=== PATIENT | female | born 1950 | race Caucasian/White ===

== ENCOUNTER → 2018-06-01 09:22 | Outpatient (CLI) | payer MEDICARE, OTHER, SELFPAY ==
--- NOTE | 2018-06-01 | DI.US.S_ITS ---
PROCEDURE: US THYROID INDICATIONS: Routine screening mammogram and hypothyroidism TECHNIQUE: Real-time scanning was performed of the thyroid gland, with image documentation. COMPARISON: [facility], US, THYROID, 05/28/2017, 11:06. [facility], US, THYROID, 11/01/2012, 14:38. [facility], US, THYROID, 08/01/2011, 14:45. FINDINGS: Right: No thyroid tissue or mass lesion found. No adjacent adenopathy seen. Prior right thyroidectomy. Left: Prior left thyroidectomy, no residual thyroid tissue seen. No mass lesion found in the operative bed. No adjacent adenopathy. Isthmus: No thyroid tissue seen. Lymph nodes: No regional lymphadenopathy. IMPRESSION: Prior bilateral thyroidectomy, no residual thyroid tissue found, no adenopathy, no mass lesion identified in the bilateral thyroid resection bed. Dictated by: Brandon Figueroa M.D. on 06/03/2018 at 9:18 Approved by: Brandon Figueroa M.D. on 06/03/2018 at 9:20
--- NOTE | 2018-06-01 | DI.RAD.S_ITS ---
PROCEDURE: XR CHEST 2V INDICATIONS: History of thyroid cancer TECHNIQUE: 2 views of the chest were acquired. COMPARISON: [facility], , CHEST 2 VIEW, 05/28/2017, 10:50. FINDINGS: Surgical changes and devices: Surgical clips in the lower neck/thoracic inlet, presumably related to thyroidectomy. Lungs and pleura: No pleural effusions or pneumothorax. Lungs are clear. Mediastinum: Mediastinal contours are normal. Heart size is normal. Bones and chest wall: No suspicious bony abnormalities. Soft tissues appear unremarkable. IMPRESSION: No acute cardiopulmonary disease. Dictated by: Radha Deleon M.D. on 06/01/2018 at 15:41 Approved by: Radha Deleon M.D. on 06/01/2018 at 15:42
--- NOTE | 2018-06-01 | DI.MG.S_ITS ---
BILATERAL DIGITAL SCREENING MAMMOGRAM 3D/2D WITH CAD: 06/01/2018 CLINICAL: Routine screening. Family history of breast cancer. Comparison is made to exams dated: 05/28/2017 mammogram, 03/27/2016 mammogram, and 02/27/2015 mammogram - [facility]. The tissue of both breasts is heterogeneously dense. This may lower the sensitivity of mammography. Current study was also evaluated with a Computer Aided Detection (CAD) system. No significant masses, calcifications, or other findings are seen in either breast. There has been no significant interval change. IMPRESSION: NEGATIVE There is no mammographic evidence of malignancy. A 1 year screening mammogram is recommended. This exam was interpreted at Station ID: [id number]. NOTE: For mammograms, a report in lay terms will be sent to the patient. Approximately 15% of breast malignancies will not be visualized mammographically. In the management of a palpable breast mass, a negative mammogram must not discourage biopsy of a clinically suspicious lesion. Electronically Signed By: Sharath vasquez/ry:06/01/2018 23:35:26 letter sent: Normal Exam ACR BI-RADS Category 1: Negative 3341F
== END ==
PROVIDERS: Family Provider Family Medicine; PCP Family Medicine; Visit Provider Family Medicine
DX: Z12.31 Encounter for screening mammogram for malignant neoplasm of breast (principal); E03.9 Hypothyroidism, unspecified; M85.852 Other specified disorders of bone density and structure, left thigh; Z78.0 Asymptomatic menopausal state; Z80.3 Family history of malignant neoplasm of breast; Z85.850 Personal history of malignant neoplasm of thyroid; Z90.722 Acquired absence of ovaries, bilateral
CPT/HCPCS: 71046; 76536; 77063; 77067; 77080

== ENCOUNTER → 2019-06-02 08:47 | Outpatient (CLI) | payer MEDICARE, OTHER, SELFPAY ==
--- NOTE | 2019-06-02 | DI.RAD.S_ITS ---
PROCEDURE: XR CHEST 2V INDICATIONS: Personal history of malignant neoplasm of thyroid, TECHNIQUE: 2 views of the chest were acquired. COMPARISON: [facility], CR, XR CHEST 2V, 06/01/2018, 9:40. FINDINGS: Surgical changes and devices: Surgical clips in the thyroid bed Lungs and pleura: Lungs are clear. No pleural effusions or pneumothorax. Mediastinum: Mediastinal contours are normal. Heart size is normal. Bones and chest wall: No suspicious bony abnormalities. Soft tissues appear unremarkable. IMPRESSION: No evidence acute pulmonary process. Dictated by: Nadir Lynn M.D. on 06/02/2019 at 9:24 Approved by: Nadir Lynn M.D. on 06/02/2019 at 9:25
--- NOTE | 2019-06-02 | DI.US.S_ITS ---
PROCEDURE: US THYROID INDICATIONS: PERSONAL HX OF MALIGNANT NEOPLASM OF THYROID TECHNIQUE: Real-time scanning was performed of the thyroid gland, with image documentation. COMPARISON: [facility], US, US THYROID, 06/01/2018, 10:05. FINDINGS: Normal appearance of the thyroid bed bilaterally status post thyroidectomy. No masses or fluid collections. No thyroid tissue seen. IMPRESSION: Stable appearance of the thyroid bed post thyroidectomy without evidence for tumor recurrence or lymphadenopathy. Dictated by: Rojelio SAMS Interpreted: Allyssa Curry MD on 06/02/2019 at 14:34 Approved by: Brandon Figueroa M.D. on 06/07/2019 at 10:00
--- NOTE | 2019-06-02 | DI.MG.S_ITS ---
BILATERAL DIGITAL SCREENING MAMMOGRAM 3D/2D WITH CAD: 06/02/2019 CLINICAL: Routine screening. Family history of breast cancer. Comparison is made to exams dated: 06/01/2018 mammogram, 05/28/2017 mammogram, and 03/27/2016 mammogram - [facility]. The tissue of both breasts is heterogeneously dense. This may lower the sensitivity of mammography. Current study was also evaluated with a Computer Aided Detection (CAD) system. No significant masses, calcifications, or other findings are seen in either breast. There has been no significant interval change. IMPRESSION: NEGATIVE There is no mammographic evidence of malignancy. A 1 year screening mammogram is recommended. This exam was interpreted at Station ID: [id number]. NOTE: For mammograms, a report in lay terms will be sent to the patient. Approximately 15% of breast malignancies will not be visualized mammographically. In the management of a palpable breast mass, a negative mammogram must not discourage biopsy of a clinically suspicious lesion. Electronically Signed By: Stephon wilson/ry:06/02/2019 12:12:19 letter sent: Normal Exam ACR BI-RADS Category 1: Negative 3341F
== END ==
PROVIDERS: Family Provider Family Medicine; PCP Family Medicine; Visit Provider Family Medicine
DX: Z12.31 Encounter for screening mammogram for malignant neoplasm of breast (principal); Z80.3 Family history of malignant neoplasm of breast; Z85.850 Personal history of malignant neoplasm of thyroid
CPT/HCPCS: 71046; 76536; 77063; 77067

== ENCOUNTER → 2020-04-21 13:24 | Outpatient (CLI) | payer MEDICARE, OTHER, SELFPAY ==
[2020-04-23 20:27] LABS: COVID19 Sendout Not Detected (Not Detect)
== END ==
PROVIDERS: PCP Family Medicine; Visit Provider Physician Assistant
DX: Z11.59 Encounter for screening for other viral diseases (principal)
CPT/HCPCS: 87635

== ENCOUNTER 2020-04-24 06:32 | Day surgery (SDC) | payer MEDICARE, OTHER, SELFPAY ==
[2020-04-24] MEDS: PROPARACAINE 0.5% OPHTH SOL 2 DROPS EYE-OP (07:15)
[2020-04-24] MEDS: CATARACT EYE COMPOUND (10 DROPS/SYRINGE) 3 DROPS EYE-OP (07:15)
[2020-04-24 07:16] VITALS: BP 158/86; PULSE 62; RESP 16; TEMP 36.5; O2SAT 99; BMI 25.7
[2020-04-24] MEDS: LIDOCAINE JELLY 2% 5 ML 1 APPLIC TOP (07:57)
[2020-04-24] MEDS: TRIAMCINOLONE 50 MG/5 ML VIAL INJ (07:57)
[2020-04-24] MEDS: CHONDROIDTIN/SOD HYALURONATE 1.05 ML SYRINGE INTRAOCULA (07:57)
[2020-04-24] MEDS: BALANCED SALT IRRIG SOLN NO.2 500 ML, EPINEPHrine 1 MG IRR (07:58)
[2020-04-24] MEDS: TETRACAINE 0.5% OPHTH DROPS 4 ML 2 DROPS EYE-OP (07:59)
[2020-04-24] MEDS: MOXIFLOXACIN INJ 5 MG/ML VIAL EYE-OP (08:00)
[2020-04-24] MEDS: PHENYLEPHRINE/LIDOCAINE VIAL (OR) 0.2 ML EYE-OP (08:00)
--- NOTE | 2020-04-24 08:05 | PM.PREOP ---
Pre-operative Note Interval Note History & Physical reviewed/Exam performed by Physician: Yes Changes to H&P: No
--- NOTE | 2020-04-24 08:06 | P.OP_ITS ---
Operative Date/Time/Diagnoses Pre-op diagnosis: Nuclear Cataract Left eye Post-op diagnosis: same Procedure & Clinicians Same procedure as scheduled: Yes Surgeon: Cecil Diez Anesthesia Type: MAC +/- and Sedation Operative Notes Procedure in detail: Patient brought to the operating suite. Tetracaine drops placed in the left eye. Patient was prepped and draped in sterile manner. Wire lid speculum was placed in the eye. Betadine drops were placed on the eye. This was irrigated. Lidocaine jelly was placed on the eye. A paracentesis port was created with a side-port blade. 0.1 mL 1% preservative free lidocaine was injected into the anterior chamber. The anterior chamber was deepened with viscoelastic. 2.6 mm keratome was used to create a temporal clear corneal incision. Cystotome and Utrata forceps were used to create continuous tear capsulorrhexis. Balanced salt solution was used to hydro dissect the nucleus. The phacoemulsification handpiece was inserted and the nucleus was removed using the stop and chop technique. The irrigation aspiration handpiece was inserted and the remaining cortex was removed. Anterior chamber was deepened with viscoe lastic. An Caceres ZCB00 intraocular lens with a power of 23.5 was injected into the capsular bag. Irrigation aspiration handpiece was inserted and the remaining viscoelastic was removed. Incision was hydrated with balanced salt solution and found to be leak free with pressure with Weck-Gavi sponges. 0.1 mL Vigamox injected anterior chamber. 0.3 mL Kenalog 10 mg was injected subconjunctivally. Lid speculum was removed. The patient left the operating room in excellent condition. Complications: none Post-operative Condition: stable Disposition: same day surgery
--- NOTE | 2020-04-24 08:08 | PM.PREOP ---
Pre-operative Note Interval Note History & Physical reviewed/Exam performed by Physician: Yes Changes to H&P: No
== END 2020-04-24 08:25 | disposition home or self-care (01) ==
PROVIDERS: PCP Family Medicine; Referring Provider Family Medicine; Visit Provider Ophthalmology
PROC: (CPT 66984; principal; 2020-04-24 07:45)
DX: H25.12 Age-related nuclear cataract, left eye (principal)
CPT/HCPCS: 66984; J0171; J2250; J3301

== ENCOUNTER → 2020-05-05 10:56 | Outpatient (CLI) | payer MEDICARE, OTHER, SELFPAY ==
[2020-05-06 20:45] LABS: COVID19 Sendout Not Detected (Not Detect)
== END ==
PROVIDERS: PCP Family Medicine; Visit Provider Physician Assistant
DX: Z11.59 Encounter for screening for other viral diseases (principal)
CPT/HCPCS: 87635

== ENCOUNTER 2020-05-08 06:38 | Day surgery (SDC) | payer MEDICARE, OTHER, SELFPAY ==
[2020-05-08] MEDS: PROPARACAINE 0.5% OPHTH SOL 2 DROPS EYE-OP (07:04)
[2020-05-08] MEDS: CATARACT EYE COMPOUND (10 DROPS/SYRINGE) 3 DROPS EYE-OP (07:05)
[2020-05-08 07:08] VITALS: BP 149/73; PULSE 58; RESP 14; TEMP 36.4; O2SAT 99; BMI 25.9
--- NOTE | 2020-05-08 07:36 | PM.PREOP ---
Pre-operative Note Interval Note History & Physical reviewed/Exam performed by Physician: Yes Changes to H&P: No
--- NOTE | 2020-05-08 07:36 | PM.OP.1 ---
Operative Date/Time/Diagnoses Pre-op diagnosis: Nuclear cataract right eye Procedure & Clinicians Procedure: Cataract Surgery Same procedure as scheduled: Yes Surgeon: Cecil Diez Anesthesia Type: MAC +/- and Sedation Operative Notes Procedure in detail: Patient brought to the operating suite. Tetracaine drops placed in the right eye. Patient was prepped and draped in sterile manner. Wire lid speculum was placed in the eye. Betadine drops were placed on the eye. This was irrigated. Lidocaine jelly was placed on the eye. A paracentesis port was created with a side-port blade. 0.1 mL 1% preservative free lidocaine was injected into the anterior chamber. The anterior chamber was deepened with viscoelastic. 2.6 mm keratome was used to create a temporal clear corneal incision. Cystotome and Utrata forceps were used to create continuous tear capsulorrhexis. Balanced salt solution was used to hydro dissect the nucleus. The phacoemulsification handpiece was inserted and the nucleus was removed using the stop and chop technique. The irrigation aspiration handpiece was inserted and the remaining cortex was removed. Anterior chamber was deepened with viscoelastic. An Caceres ZCB00 intraocular lens with a power of 23.5 was injected into the capsular bag. Irrigation aspiration handpiece was inserted and the remaining viscoelastic was removed. Incision was hydrated with balanced salt solution and found to be leak free with pressure with Weck-Gavi sponges. 0.1 mL Vigamox injected anterior chamber. 0.3 mL Kenalog 10 mg was injected subconjunctivally. Lid speculum was removed. The patient left the operating room in excellent condition. Complications: none Post-operative Condition: stable Disposition: same day surgery
--- NOTE | 2020-05-08 07:50 | SUR.OPER ---
Supine on eye stretcher, head on extension cradle secured with tape. Arms tucked at sides with blanket. Pillow under knees.
[2020-05-08] MEDS: CHONDROIDTIN/SOD HYALURONATE 1.05 ML SYRINGE INTRAOCULA (07:56)
[2020-05-08] MEDS: MOXIFLOXACIN INJ 5 MG/ML VIAL EYE-OP (07:57)
[2020-05-08] MEDS: LIDOCAINE JELLY 2% 5 ML 1 APPLIC TOP (07:57)
[2020-05-08] MEDS: BALANCED SALT IRRIG SOLN NO.2 500 ML, EPINEPHrine 1 MG IRR (07:58)
[2020-05-08] MEDS: PHENYLEPHRINE/LIDOCAINE VIAL (OR) 0.2 ML EYE-OP (07:58)
[2020-05-08] MEDS: TRIAMCINOLONE 50 MG/5 ML VIAL INJ (07:59)
[2020-05-08] MEDS: TETRACAINE 0.5% OPHTH DROPS 4 ML 2 DROPS EYE-OP (08:01)
[2020-05-08 08:07] VITALS: BP 130/80; PULSE 65; RESP 18; TEMP 36.5; O2SAT 96
== END 2020-05-08 08:19 | disposition home or self-care (01) ==
PROVIDERS: PCP Family Medicine; Referring Provider Family Medicine; Visit Provider Ophthalmology
PROC: (CPT 66984; principal; 2020-05-08 07:45)
DX: H25.11 Age-related nuclear cataract, right eye (principal)
CPT/HCPCS: 66984; J0171; J2250; J3301

== ENCOUNTER → 2020-06-12 09:41 | Outpatient (CLI) | payer MEDICARE, OTHER, SELFPAY ==
--- NOTE | 2020-06-12 | DI.RAD.S_ITS ---
PROCEDURE: XR CHEST 2V INDICATIONS: Personal history of malignant neoplasm of thyroid TECHNIQUE: 2 views of the chest were acquired. COMPARISON: [facility], CR, XR CHEST 2V, 06/02/2019, 9:04. FINDINGS: Surgical changes and devices: None. Lungs and pleura: Lungs are clear. No pleural effusions or pneumothorax. Mediastinum: Mediastinal contours are normal. Heart size is normal. Bones and chest wall: No suspicious bony abnormalities. Soft tissues appear unremarkable. IMPRESSION: No acute or metastatic disease identified. Dictated by: Rojelio SAMS Interpreted: Eric Baker MD on 06/12/2020 at 11:46 Approved by: Eric Baker M.D. on 06/12/2020 at 14:28
--- NOTE | 2020-06-12 | DI.MG.S_ITS ---
BILATERAL DIGITAL SCREENING MAMMOGRAM 3D/2D WITH CAD: 06/12/2020 CLINICAL: Routine screening. Family history of breast cancer. Comparison is made to exams dated: 06/02/2019 mammogram, 06/01/2018 mammogram, and 05/28/2017 mammogram - [facility]. The tissue of both breasts is heterogeneously dense. This may lower the sensitivity of mammography. Current study was also evaluated with a Computer Aided Detection (CAD) system. No significant masses, calcifications, or other findings are seen in either breast. There has been no significant interval change. IMPRESSION: NEGATIVE There is no mammographic evidence of malignancy. A 1 year screening mammogram is recommended. This exam was interpreted at Station ID: [id number]. NOTE: For mammograms, a report in lay terms will be sent to the patient. Approximately 15% of breast malignancies will not be visualized mammographically. In the management of a palpable breast mass, a negative mammogram must not discourage biopsy of a clinically suspicious lesion. Electronically Signed By: Rom Thompson M.D., jr/ry:06/12/2020 11:32:29 letter sent: Normal Exam ACR BI-RADS Category 1: Negative 3341F
--- NOTE | 2020-06-12 | DI.US.S_ITS ---
PROCEDURE: US THYROID INDICATIONS: Hypothyroidism TECHNIQUE: Real-time scanning was performed of the thyroid gland, with image documentation. COMPARISON: [facility], US, US THYROID, 06/02/2019, 9:05. FINDINGS: Expected appearance of the thyroid bed bilaterally and no fluid collections or masses are seen. No lymphadenopathy. IMPRESSION: Stable exam status post thyroidectomy and no tumoral recurrence or lymphadenopathy is seen. Dictated by: Rojelio SAMS Interpreted: Eric Baker MD on 06/12/2020 at 11:44 Approved by: Eric Baker M.D. on 06/12/2020 at 11:47
== END ==
PROVIDERS: PCP Family Medicine; Referring Provider Family Medicine; Visit Provider Family Medicine
DX: Z12.31 Encounter for screening mammogram for malignant neoplasm of breast (principal); Z80.3 Family history of malignant neoplasm of breast; M85.852 Other specified disorders of bone density and structure, left thigh; Z78.0 Asymptomatic menopausal state; E89.0 Postprocedural hypothyroidism; Z85.850 Personal history of malignant neoplasm of thyroid; Z90.722 Acquired absence of ovaries, bilateral
CPT/HCPCS: 71046; 76536; 77063; 77067; 77080

== ENCOUNTER → 2020-10-26 08:06 | Outpatient (CLI) | payer MEDICARE, OTHER, SELFPAY ==
[2020-10-26] MEDS: COVID-19 VACC #1, MRNA(MOD) 100 MCG/0.5 ML VIAL IM (08:12)
== END ==
PROVIDERS: PCP Family Medicine; Visit Provider Internal Medicine
DX: Z23 Encounter for immunization (principal)
CPT/HCPCS: 0011A; 91301

== ENCOUNTER 2020-11-07 13:18 | Emergency (ER) | payer MEDICARE, OTHER, SELFPAY ==
[2020-11-07] VITALS (9 sets, daily range): BP systolic 112–129; BP diastolic 56–66; PULSE 71–81; RESP 7–21; TEMP 35.7; O2SAT 94–96; BMI 25.7
--- NOTE | 2020-11-07 13:33 | DI.RAD.S_ITS ---
PROCEDURE: XR CHEST 1V INDICATIONS: syncope TECHNIQUE: One view of the chest was acquired. COMPARISON: [facility], , XR CHEST 2V, 06/12/2020, 10:25. FINDINGS: Surgical changes and devices: Numerous surgical clips in the thyroid fossa.. Lungs and pleura: Lungs are clear. No pleural effusions or pneumothorax. Mediastinum: Mediastinal contours appear normal. Heart size is normal. Bones and chest wall: No suspicious bony lesions. Overlying soft tissues appear unremarkable. IMPRESSION: No acute cardiopulmonary disease process. Dictated by: Demetra Dias MD, PhD on 11/07/2020 at 14:21 Approved by: Demetra Dias MD, PhD on 11/07/2020 at 14:22
[2020-11-07 13:39] LABS: Add Manual Diff / Slide Review NO; Basophils Absolute Auto 100 /uL (0-100); Basophils Percent Auto 0.5 % (0-2); Eosinophils Absolute Auto 0 /uL (0-450); Eosinophils Percent Auto 0.2 % (2-4); Hematocrit 44.3 % (36-46); Hemoglobin 14.7 g/dL (12.0-16.0); Lymphocytes Absolute Auto 600 /uL (1100-4500); Lymphocytes Percent Auto 4.9 % (25-40); Mean Corpuscular HGB Conc 33.2 % (30-36); Mean Corpuscular Hemoglobin 28.1 PG (26-34); Mean Corpuscular Volume 84.5 fL (80-100); Monocytes Absolute Auto 300 /uL (0-900); Monocytes Percent Auto 2.2 % (3-14); Neutrophils Absolute Auto 12100 /uL (1500-7000); Neutrophils Percent Auto 92.2 % (50-75); Platelet Count 307 X10^3/uL (150-400); Red Blood Cell Count 5.25 X10^6/uL (4.0-5.2); Red Cell Distribution Width 14.5 % (11.6-14.8); White Blood Cell Count 13.1 X10^3/uL (4.5-11.0)
[2020-11-07 13:46] LABS: Alanine Aminotransferase 34 IU/L (<35); Albumin Globulin Ratio 1.3 (1.0-2.8); Alkaline Phosphatase 82 U/L (38-126); Aspartate Aminotransferase 32 IU/L (14-36); BUN Creatinine Ratio 20.3 (6-22); Bilirubin Total 0.6 mg/dL (0.2-1.3); Blood Urea Nitrogen 15 mg/dL (7-17); Calcium 9.1 mg/dL (8.4-10.2); Carbon Dioxide 23 mmol/L (22-32); Chloride 106 mmol/L (98-107); Creatine Kinase 126 U/L (30-135); Estimated Glomerular Filt Rate > 60.0 mL/min (>60); Globulin 3.2 g/dL (1.7-4.1); Glucose 159 mg/dL (80-110); HEMOLYSIS < 15 (0-50); Potassium 3.6 mmol/L (3.4-5.1); Sodium 138 mmol/L (137-145); Total Protein 7.2 g/dL (6.3-8.2)
--- NOTE | 2020-11-07 13:57 | DI.CT.S_ITS ---
PROCEDURE: CT HEAD/BRAIN WO CON INDICATIONS: syncope TECHNIQUE: Noncontrast 4.5 mm thick angled axial sections acquired from the foramen magnum to the vertex, with coronal and sagittal reformats. For radiation dose reduction, the following was used: automated exposure control, adjustment of mA and/or kV according to patient size. COMPARISON: None. FINDINGS: Image quality: Excellent. CSF spaces: Basal cisterns are patent. No extra-axial fluid collections. Ventricles are normal in size and shape. Brain: No midline shift. No intracranial masses or hemorrhage. Bermeo-white matter interface is normal. Skull and face: Calvarium and visualized facial bones are intact, without suspicious lesions. Sinuses: Visualized sinuses and mastoids are clear. IMPRESSION: No CT evidence of acute intracranial process. Dictated by: Thi Ann M.D. on 11/07/2020 at 13:43 Approved by: Thi Ann M.D. on 11/07/2020 at 13:44
[2020-11-07 13:58] LABS: NT-proBNP (BNP-Adult 18+) 82 pg/mL (<125); Troponin I < 0.012 ng/mL (0.01-0.034)
--- NOTE | 2020-11-07 14:00 | ED_ITS ---
HPI - Syncope <Fifi Coe DO - Last Filed: 11/11/20 06:40> General Chief Complaint: Syncope Stated Complaint: Syncope Time Seen by Provider: 11/07/20 13:23 Related Data Home Medications Medication Instructions Recorded Confirmed calcium carbonate 600 mg PO BID #0 06/03/17 04/24/20 levothyroxine [Synthroid] 112 mcg PO QDAY #0 06/03/17 04/24/20 magnesium oxide 400 mg PO QDAY #0 06/03/17 04/24/20 omega 6-kpv-gej-fish oil [Fish Oil] 1,000 mg PO BID #0 06/03/17 04/24/20 Allergies Allergy/AdvReac Type Severity Reaction Status Date / Time No Known Allergies Allergy Unknown Verified 05/08/20 07:02 [NO KNOWN ALLERGIES] <Dorothy Welsh PA-C - Last Filed: 11/07/20 17:27> General Source: patient Mode of arrival: EMS Limitations: no limitations History of Present Illness HPI narrative: This is a well-appearing 70-year-old woman the history of hypothyroid 1 previous syncopal episode who presents complaining of syncopal episode. She had a dentist appointment this morning and she had a molar extracted from her left lower jaw this went fine she was at home resting for a while in bed her asked her to come have lunch with him and shortly after she got to the dining table she was feeling somewhat lightheaded and told him she wanted to go back to bed he was assisting her to walk back to the bed and according to her she ?started getting heavier and heavier to the point where she stopped moving her legs and I had to lower her to the floor, she had her eyes open but she was no longer responding to me she was breathing this lasted about 60-90 seconds during which time I was calling EMS after that she came to and started moaning and then talking to me normally I was ultimately able to get her up and get her back in bed?. 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 She has walked since the event and she said that she felt a little unsteady on her feet but denied any one- sided weakness. She continues to have some mild dizziness but otherwise is feeling pretty normal. She did take hydrocodone after her dentist appointment but she has taken this previously and never had a problem with it. She denies any recent illness, any fevers, chills, dysuria, diarrhea, constipation, chest pain, shortness of breath, back pain, vision changes, speech changes or any other symptoms MD complaint: loss of consciousness Onset (ago): hour(s) (1.5) Duration of episode: 90 -: second(s) Prodromal symptoms: lightheaded Witnessed: yes - by other () Context: at rest (Lightheadedness started at rest syncope occurred after standing and walking) and other (Dentist appointment with tooth extraction this morning,) Injuries sustained associated with event: none Current symptoms: lightheaded and other (Feeling somewhat dizzy lightheaded still) History: previous syncopal episode (One previous syncopal attributed to dehydration) Treatments prior to arrival: none <Dorothy Welsh PA-C - Last Filed: 11/07/20 17:27> Review of Systems Narrative: GENERAL: Endorses feeling chills earlier today before the event for an hour so denies, fatigue, malaise, fever, endorses feeling hot and sweats for a little while after the syncopal episode. HEENT: Denies sinus pain, ear pain, sore throat, difficulty swallowing, endorses lightheadedness/dizziness that is mild. RESPIRATORY: Denies dyspnea, cough, wheezing, hemoptysis, sputum. CARDIOVASCULAR: Denies chest pain, palpitations, orthopnea, edema, GASTROINTESTINAL: Denies nausea, vomiting, abdominal pain, diarrhea, constipation, melena. : Denies dysuria, frequency, incontinence, hematuria, urinary retention. MUSCULOSKELETAL: Endorses feeling generalized weakness prior to and after her syncopal episode no longer feeling this, joint pain, or bony pain SKIN: Denies rash, skin lesions, or other NEUROLOGIC: Denies one-sided weakness, see MSK, denies, headache, numbness, change in speech, confusion, seizures, incoordination. PSYCHIATRIC: No concerning psychosocial issues. 12 point review of systems is negative except for those stated above ROS Unobtainable: All systems reviewed & are unremarkable except as noted in HPI and below Patient History <Fifi Coe DO - Last Filed: 11/11/20 06:40> Social History household members: spouse Smoking Status: Never smoker alcohol intake: current <Dorothy Welsh PA-C - Last Filed: 11/07/20 17:27> Smoking Status: Never smoker alcohol intake frequency: a few times a week Substance Use Type: does not use Exam <Fifi Lara Coe DO - Last Filed: 11/11/20 06:40> Initial Vital Signs Initial Vital Signs: Vital Signs Temperature 96.2 F L 11/07/20 13:15 Pulse Rate 78 11/07/20 13:15 Respiratory Rate 16 11/07/20 13:15 Blood Pressure 120/57 L 11/07/20 13:15 Pulse Oximetry 94 11/07/20 13:15 <Dorothy Welsh PA-C - Last Filed: 11/07/20 17:27> Narrative Exam Narrative: GENERAL: 70 year old patient appears stated age. Well-nourished, well-developed patient, in mild distress, the back of her shirt is warm and slightly sweaty. HEAD: Atraumatic. Normocephalic. EYES: Pupils equal round and reactive. Extraocular motions intact. No scleral icterus. No injection or drainage. ENT: Nose without bleeding, purulent drainage. Throat without erythema, tonsillar hypertrophy or exudate. Airway patent. There is evidence of a recent molar extraction posterior left lower jaw with bleeding controlled. Uvula midline. NECK: Trachea midline. Non tender CARDIOVASCULAR: Regular rate and rhythm without murmurs, gallops, or rubs. RESPIRATORY: Clear to auscultation. Breath sounds equal bilaterally. No wheezes, rales, or rhonchi. GASTROINTESTINAL: Abdomen soft, non-tender, nondistended. EXTREMITIES: No edema or joint tenderness. Strength is 5/5 bilaterally upper lower extremities, sensation is intact. BACK: Nontender without deformity or crepitance. No flank tenderness. NEURO: AOx3. Cranial nerves II-XII intact, oriented, at baseline, coordination is intact, qfisdy-gm-[id number] intact, agan-cj-jsol intact, negative arm drift. Unremarkable neuro exam. SKIN: No rash or erythema of visible areas Initial Vital Signs Initial Vital Signs: Vital Signs Temperature 96.2 F L 11/07/20 13:15 Pulse Rate 78 11/07/20 13:15 Respiratory Rate 16 11/07/20 13:15 Blood Pressure 120/57 L 11/07/20 13:15 Pulse Oximetry 94 11/07/20 13:15 <Dorothy Welsh PA-C - Last Filed: 11/07/20 17:27> GCS Elisabet coma scale eye opening: Spontaneous Nubieber coma scale verbal response: Orientated Nubieber coma scale motor response: Obey commands Nubieber coma scale total score: 15 NIH Stroke Scale Level of Conciousness: Alert, keenly responsive Ask month/age: Answers both questions correctly. Open/close eyes, close hand: Performs both tasks correctly Best gaze horizontal: Normal Visual delacruz: No visual loss Facial palsy: Normal symetrical movement Left arm drift: No drift for full 10 sec Right arm drift: No drift for full 10 sec Left leg drift: No drift for full 5 sec Right leg drift: No drift for full 5 sec Limb ataxia: Absent Sensory on face/arms/legs: Normal, no sensory loss Best language: No aphasia, normal Dysarthria: Normal Extinction or inattention: No abnormality Total NIH Stroke scale score: 0 Course <Fifi Coe DO - Last Filed: 11/11/20 06:40> Orders Ordered: Discontinued Medications Hydrocodone Bitart/Acetaminophen (Hydrocodone/Acet 5/325 Tablet) 1 tab PO NOW ONE Stop: 11/07/20 15:35 Last Admin: 11/07/20 15:49 Dose: 1 tab Documented by: AMBIKA Sodium Chloride (Normal Saline 0.9%) 1,000 mls @ 150 mls/hr IV CONT KIMBERLY Last Admin: 11/07/20 14:58 Dose: Not Given Documented by: AMBIKA Sodium Chloride (Normal Saline 0.9%) 1,000 mls @ 1,000 mls/hr IV BOLUS ONE Stop: 11/07/20 14:48 Last Infusion: 11/07/20 16:30 Dose: 0 mls/hr Documented by: Admin: 11/07/20 15:00 Dose: 1,000 mls/hr Documented by: AMBIKA Vital Signs Vital signs: Vital Signs - 8 hr 11/07/20 13:15 11/07/20 14:09 11/07/20 14:10 Temperature 96.2 F L Pulse Rate 78 81 78 Respiratory Rate 16 14 Blood Pressure 120/57 L 119/61 Pulse Oximetry 94 94 95 11/07/20 14:30 11/07/20 15:00 11/07/20 15:30 Temperature Pulse Rate 73 71 73 Respiratory Rate 7 L 16 21 Blood Pressure 115/56 L 112/60 129/66 Pulse Oximetry 94 94 94 11/07/20 16:00 11/07/20 16:30 11/07/20 17:00 Temperature Pulse Rate 74 74 73 Respiratory Rate 9 L 11 L 11 L Blood Pressure Pulse Oximetry 96 94 95 <Dorothy Welsh PA-C - Last Filed: 11/07/20 17:27> Course Course Narrative: Fall this patient did have a normal neuro exam based on her age and the fact that she is still experiencing some ongoing dizziness after discussion with attending physician and we do elect to do a noncontrast head CT for further evaluation. Will also check a d-dimer. 14:11 Patient did return with a positive D-dimer even after age adjusted she is at 660 in the cuff with age adjustment is 500. Did discuss patient again with attending physician and in the context of her syncope and elevated dimer pursue a CTA for further evaluation. 15:09 Advised the patient of the plan to do the CT a and why we were doing this discussed the lab results so far and negative head scan. Patient has me to re- evaluate her oral cavity where the tooth was she was concerned maybe bleeding however appears to look good there was good clot still in place. With no active bleeding. She is requesting some pain medicine as her tooth pain is starting to become severe in its ?time for her next dose of pain medicine?. I have ordered her some hydrocodone. 15:36 Orders Ordered: Discontinued Medications Hydrocodone Bitart/Acetaminophen (Hydrocodone/Acet 5/325 Tablet) 1 tab PO NOW ONE Stop: 11/07/20 15:35 Last Admin: 11/07/20 15:49 Dose: 1 tab Documented by: DAMARISUDROMINA Sodium Chloride (Normal Saline 0.9%) 1,000 mls @ 150 mls/hr IV CONT KIMBERLY Last Admin: 11/07/20 14:58 Dose: Not Given Documented by: DAMARISUDSON Sodium Chloride (Normal Saline 0.9%) 1,000 mls @ 1,000 mls/hr IV BOLUS ONE Stop: 02/17/21 14:48 Last Infusion: 11/07/20 16:30 Dose: 0 mls/hr Documented by: Admin: 11/07/20 15:00 Dose: 1,000 mls/hr Documented by: AMBIKA Vital Signs Vital signs: Vital Signs - 8 hr 11/07/20 13:15 11/07/20 14:09 11/07/20 14:10 Temperature 96.2 F L Pulse Rate 78 81 78 Respiratory Rate 16 14 Blood Pressure 120/57 L 119/61 Pulse Oximetry 94 94 95 11/07/20 14:30 11/07/20 15:00 11/07/20 15:30 Temperature Pulse Rate 73 71 73 Respiratory Rate 7 L 16 21 Blood Pressure 115/56 L 112/60 129/66 Pulse Oximetry 94 94 94 11/07/20 16:00 11/07/20 16:30 11/07/20 17:00 Temperature Pulse Rate 74 74 73 Respiratory Rate 9 L 11 L 11 L Blood Pressure Pulse Oximetry 96 94 95 MDM - Syncope <Fifi Coe, - Last Filed: 11/11/20 06:40> Lab Data Result diagrams: 11/07/20 13:30 11/07/20 13:30 Labs: Lab Results 11/07/20 11/07/20 11/07/20 Range/Units 13:30 13:30 13:38 WBC 13.1 H (4.5-11.0) X10^3/uL RBC 5.25 H (4.0-5.2) X10^6/uL Hgb 14.7 (12.0-16.0) g/dL Hct 44.3 (36-46) % MCV 84.5 (80-100) fL MCH 28.1 (26-34) PG MCHC 33.2 (30-36) % RDW 14.5 (11.6-14.8) % Plt Count 307 (150-400) X10^3/uL Neut % (Auto) 92.2 H (50-75) % Lymph % (Auto) 4.9 L (25-40) % [place] % (Auto) 2.2 L (3-14) % Eos % (Auto) 0.2 L (2-4) % Baso % (Auto) 0.5 (0-2) % Neut # (Auto) 75639 H (2121-4147) /uL Lymph # (Auto) 600 L (1671-2291) /uL [place] # (Auto) 300 (0-900) /uL Eos # (Auto) 0 (0-450) /uL Baso # (Auto) 100 (0-100) /uL D-Dimer 918 H (<230) ng/mL Sodium 138 (137-145) mmol/L Potassium 3.6 (3.4-5.1) mmol/L Chloride 106 (98-107) mmol/L Carbon Dioxide 23 (22-32) mmol/L BUN 15 (7-17) mg/dL Creatinine 0.74 (0.52-1.04) mg/dL Estimated GFR > 60.0 (>60) mL/min BUN/Creatinine Ratio 20.3 (6-22) Glucose 159 H (80-110) mg/dL Calcium 9.1 (8.4-10.2) mg/dL Magnesium 2.0 (1.6-2.3) mg/dL Total Bilirubin 0.6 (0.2-1.3) mg/dL AST 32 (14-36) IU/L ALT 34 (<35) IU/L Alkaline Phosphatase 82 (38-126) U/L Total Creatine Kinase 126 (30-135) U/L CK-MB (CK-2) 3.69 H (<2.37) ng/mL CK-MB (CK-2) Rel Index 2.9 (1.5-5.0) % Troponin I < 0.012 (0.01-0.034) ng/mL NT-Pro-B Natriuret Pep 82 (<125) pg/mL Total Protein 7.2 (6.3-8.2) g/dL Albumin 4.0 (3.5-5.0) g/dL Globulin 3.2 (1.7-4.1) g/dL Albumin/Globulin Ratio 1.3 (1.0-2.8) ECG Data Attestation: I personally reviewed and interpreted this ECG as follows: Prior ECG tracings: not available for review Interpretation: NSR, nonspecific change, rate of 78, pr of 164, qrs of 85, qtc of 411. No priors avauilable. <Dorothy Welsh PA-C - Last Filed: 11/07/20 17:27> Differential Diagnosis Differential diagnosis: Likely syncope due to orthostatic hypotension, vasovagal syncope, pulmonary embolism, dehydration and other (NE) Medical Records Attestation: I reviewed the patient's medical records. Lab Data Attestation: I reviewed the patient's lab results. Labs: Lab Results 11/07/20 11/07/20 11/07/20 Range/Units 13:30 13:30 13:38 WBC 13.1 H (4.5-11.0) X10^3/uL RBC 5.25 H (4.0-5.2) X10^6/uL Hgb 14.7 (12.0-16.0) g/dL Hct 44.3 (36-46) % MCV 84.5 (80-100) fL MCH 28.1 (26-34) PG MCHC 33.2 (30-36) % RDW 14.5 (11.6-14.8) % Plt Count 307 (150-400) X10^3/uL Neut % (Auto) 92.2 H (50-75) % Lymph % (Auto) 4.9 L (25-40) % [place] % (Auto) 2.2 L (3-14) % Eos % (Auto) 0.2 L (2-4) % Baso % (Auto) 0.5 (0-2) % Neut # (Auto) 74401 H (2241-2775) /uL Lymph # (Auto) 600 L (3829-2976) /uL [place] # (Auto) 300 (0-900) /uL Eos # (Auto) 0 (0-450) /uL Baso # (Auto) 100 (0-100) /uL D-Dimer 918 H (<230) ng/mL Sodium 138 (137-145) mmol/L Potassium 3.6 (3.4-5.1) mmol/L Chloride 106 (98-107) mmol/L Carbon Dioxide 23 (22-32) mmol/L BUN 15 (7-17) mg/dL Creatinine 0.74 (0.52-1.04) mg/dL Estimated GFR > 60.0 (>60) mL/min BUN/Creatinine Ratio 20.3 (6-22) Glucose 159 H (80-110) mg/dL Calcium 9.1 (8.4-10.2) mg/dL Magnesium 2.0 (1.6-2.3) mg/dL Total Bilirubin 0.6 (0.2-1.3) mg/dL AST 32 (14-36) IU/L ALT 34 (<35) IU/L Alkaline Phosphatase 82 (38-126) U/L Total Creatine Kinase 126 (30-135) U/L CK-MB (CK-2) 3.69 H (<2.37) ng/mL CK-MB (CK-2) Rel Index 2.9 (1.5-5.0) % Troponin I < 0.012 (0.01-0.034) ng/mL NT-Pro-B Natriuret Pep 82 (<125) pg/mL Total Protein 7.2 (6.3-8.2) g/dL Albumin 4.0 (3.5-5.0) g/dL Globulin 3.2 (1.7-4.1) g/dL Albumin/Globulin Ratio 1.3 (1.0-2.8) Imaging Data CT scan - chest: Attestation: I personally reviewed and interpreted this imaging study as follows: Radiologist's Impression: [address] [id number] Scan ReportSigned Patient: Alma Crooks R#: [id number]: [id number]:[id number]/Sex: 70 / FDate of Service: 11/07/20Loc: EDAccession Number: [id number] Procedure: CT angio chest PE protocol Ordering Provider: Dorothy Welsh P.A-C PROCEDURE: CT ANGIO CHEST PE PROTOCOL INDICATIONS: syncope, elevated dimer TECHNIQUE: After the administration of intravenous contrast, 2 mm thick sections acquired from the pulmonary apices to the posterior costophrenic angles. 3-dimensional maximum intensity projection (MIP) coronal and sagittal reformats were then acquired through the thorax. For radiation dose reduction, the following was used: automated exposure control, adjustment of mA and/or kV according to patient size. COMPARISON: [facility], CR, XR CHEST 1V, 11/07/2020, 14:01. FINDINGS: Image quality: Excellent. Pulmonary arteries: Pulmonary arteries are normal in size, and demonstrate no intraluminal filling defects to suggest central pulmonary embolism. Lungs and pleura: Lungs are clear. No pleural effusions or pneumothorax. Central and peripheral airways are patent. Mediastinum: Heart size is normal. Trace pericardial fluid noted. No mediastinal or hilar adenopathy. Thoracic aorta is normal in caliber and enhancement. Esophagus is normal in caliber, without hiatal hernia. Bones and chest wall: No suspicious bony lesions. Ribs and thoracic spine appear intact throughout. Spine degenerative disc disease and facet arthropathy. Thyroid gland is surgically absent. No axillary or supraclavicular adenopathy. Abdomen: Visualized upper abdominal solid organs appear normal in the early arterial phase of enhancement. IMPRESSION: 1. No pulmonary embolus. 2. No lung consolidation or pleural effusions. Dictated by: Demetra Dias MD, PhD on 11/07/2020 at 15:57 Approved by: Demetra Dias MD, PhD on 11/07/2020 at 16:02 Chest x-ray: Attestation: I personally reviewed and interpreted this imaging study as follows: Radiologist's Impression: [address] [id number] ReportSigned Patient: Alma Crooks RMR#: [id number]: [id number]:[id number]/Sex: 70 / FDate of Service: 11/07/20Loc: EDAccession Number: [id number] Procedure: XR chest 1V Ordering Provider: Fifi Coe D.O. PROCEDURE: XR CHEST 1V INDICATIONS: syncope TECHNIQUE: One view of the chest was acquired. COMPARISON: [facility], , XR CHEST 2V, 06/12/2020, 10:25. FINDINGS: Surgical changes and devices: Numerous surgical clips in the thyroid fossa.. Lungs and pleura: Lungs are clear. No pleural effusions or pneumothorax. Mediastinum: Mediastinal contours appear normal. Heart size is normal. Bones and chest wall: No suspicious bony lesions. Overlying soft tissues appear unremarkable. IMPRESSION: No acute cardiopulmonary disease process. Dictated by: Demetra Dias MD, PhD on 11/07/2020 at 14:21 Approved by: Demetra Dias MD, PhD on 11/07/2020 at 14:22 CT scan - head: Attestation: I personally reviewed and interpreted this imaging study as follows: Radiologist's Impression: [address] [id number] Scan ReportSigned Patient: Alma Crooks RMR#: [id number]: [id number]:[id number]/Sex: 70 / FDate of Service: 11/07/20Loc: EDAccession Number: [id number] Procedure: CT head/brain wo con Ordering Provider: Dorothy Welsh P.A-C PROCEDURE: CT HEAD/BRAIN WO CON INDICATIONS: syncope TECHNIQUE: Noncontrast 4.5 mm thick angled axial sections acquired from the foramen magnum to the vertex, with coronal and sagittal reformats. For radiation dose reduction, the following was used: automated exposure control, adjustment of mA and/or kV according to patient size. COMPARISON: None. FINDINGS: Image quality: Excellent. CSF spaces: Basal cisterns are patent. No extra-axial fluid collections. Ventricles are normal in size and shape. Brain: No midline shift. No intracranial masses or hemorrhage. Bermeo-white matter interface is normal. Skull and face: Calvarium and visualized facial bones are intact, without suspicious lesions. Sinuses: Visualized sinuses and mastoids are clear. IMPRESSION: No CT evidence of acute intracranial process. Dictated by: Thi Ann M.D. on 11/07/2020 at 13:43 Approved by: Thi Ann M.D. on 11/07/2020 at 13:44 ECG Data Attestation: I personally reviewed and interpreted this ECG as follows: (Also reviewed by Dr. Coe attending physician) Prior ECG tracings: not available for review Interpretation: Normal sinus rhythm nonspecific T-wave abnormality rate 78, DC interval 164, QRS 85, QTC 411, P axis 72 R axis 56 T axis 79 inverted Ts in V1, V2 MDM Narrative Medical decision making narrative: This is a fairly well-appearing 70-year-old woman who presents brought in by EMS after syncopal episode. She had a dental extraction at the dentist this morning was otherwise feeling in her normal state of health. Did have some chills this afternoon and then felt lightheaded and weak at the lunch table tried to walk to her bedroom with her 's assistance only made of 5 steps before she syncopized. She was ?unconscious? for about 90 seconds but breathing and with her eyes open with no seizure-like movements. All of her labs and imaging returned unremarkable. Including noncontrast head CT, CTA PE, chest x-ray, cardiac labs. Cause of her elevated dimer is unclear. She does have a history of thyroid cancer however this is quite distant and she is being monitored regularly for this. She is well- appearing walks well on discharge and is comfortable going home. She is provided with emergency return precautions, all questions answered, follow-up plan discussed. Discharge Plan Departure Patient Disposition: Home Clinical Impression: Syncope Qualifiers: Syncope type: unspecified Qualified Code(s): R55 - Syncope and collapse Instructions: DI for Syncope in Adults (Fainting) Activity Restrictions/Additional Instructions: Thank you for letting us be part of your care today in the emergency department and thank you for your patients. We did a pretty thorough evaluation and did not find a clear cause for your syncopal episode today. It is certainly possible that you were dehydrated however from what we could see her heart was looking good your brain was looking good and we did see evidence of a blood clot in your lungs. All of which can potentially cause syncopal episodes. Of course it is important to take it easy over the next few days and monitor for any new or worsening symptoms or certainly if you have syncopal episodes again. Do not hesitate to get re-evaluated if you have concerns or new or concerning symptoms, otherwise do please follow-up with your primary care provider in the next 48 hours ideally. Try to stay hydrated and fed and I hope that you are feeling better soon. It is always reasonable to consider following up with Cardiology when he have an event like this however we did have you on the monitor during her stay and we did not see any arrhythmias. Prescriptions: No Action levothyroxine [Synthroid] 125 MCG tablet 112 mcg PO QDAY Qty: 0 RF: 0 omega 9-[id number]-jsp-fish oil [Fish Oil] 1,000 MG capsule 1,000 mg PO BID Qty: 0 RF: 0 magnesium oxide 400 MG capsule 400 mg PO QDAY Qty: 0 RF: 0 calcium carbonate 600 MG tablet 600 mg PO BID Qty: 0 RF: 0 Referrals: Dorothy Weiss MD [Primary Care Provider] - ED Sign-out <Fifi Coe DO - Last Filed: 11/11/20 06:40> Cosign ED Attending Cosignature Attestation: I was immediately available in the department for consultation. Documentation has been reviewed. Case reviewed with myself.
[2020-11-07 14:01] LABS: CKMB % Relative Index 2.9 % (1.5-5.0); Creatine Kinase MB 3.69 ng/mL (<2.37)
[2020-11-07 14:34] LABS: D Dimer 918 ng/mL (<230)
[2020-11-07] MEDS: SODIUM CHLORIDE 0.9% 1,000 ML 1000 ML IV (15:00)
--- NOTE | 2020-11-07 15:07 | DI.CT.S_ITS ---
PROCEDURE: CT ANGIO CHEST PE PROTOCOL INDICATIONS: syncope, elevated dimer TECHNIQUE: After the administration of intravenous contrast, 2 mm thick sections acquired from the pulmonary apices to the posterior costophrenic angles. 3-dimensional maximum intensity projection (MIP) coronal and sagittal reformats were then acquired through the thorax. For radiation dose reduction, the following was used: automated exposure control, adjustment of mA and/or kV according to patient size. COMPARISON: [facility], CR, XR CHEST 1V, 11/07/2020, 14:01. FINDINGS: Image quality: Excellent. Pulmonary arteries: Pulmonary arteries are normal in size, and demonstrate no intraluminal filling defects to suggest central pulmonary embolism. Lungs and pleura: Lungs are clear. No pleural effusions or pneumothorax. Central and peripheral airways are patent. Mediastinum: Heart size is normal. Trace pericardial fluid noted. No mediastinal or hilar adenopathy. Thoracic aorta is normal in caliber and enhancement. Esophagus is normal in caliber, without hiatal hernia. Bones and chest wall: No suspicious bony lesions. Ribs and thoracic spine appear intact throughout. Spine degenerative disc disease and facet arthropathy. Thyroid gland is surgically absent. No axillary or supraclavicular adenopathy. Abdomen: Visualized upper abdominal solid organs appear normal in the early arterial phase of enhancement. IMPRESSION: 1. No pulmonary embolus. 2. No lung consolidation or pleural effusions. Dictated by: Demetra Dias MD, PhD on 11/07/2020 at 15:57 Approved by: Demetra Dias MD, PhD on 11/07/2020 at 16:02
[2020-11-07] MEDS: HYDROCODONE/ACET 5/325 TABLET 1 TAB PO (15:49)
--- NOTE | 2020-11-07 17:10 | PC.NURSE ---
Patient had a tooth pulled this morning, patient felt like she needed to lay down while eating lunch. Spouse followed patient and assisted her down to ground. Patient unresponsive for few seconds. Patient came too and stated she was fine. Does report some dizziness here today in ER, states she hasn't had much to eat or drink today
== END 2020-11-07 17:28 | disposition home or self-care (01) ==
PROVIDERS: Emergency Medicine; Emergency Provider Student in an Organized Health Care Education/Training Program; PCP Family Medicine
DX: R55 Syncope and collapse (principal); R79.1 Abnormal coagulation profile; E03.9 Hypothyroidism, unspecified
CPT/HCPCS: 36415; 70450; 71045; 71275; 80053; 82550; 82553; 83735; 83880; 84484; 85025; 85379; 93005; 93010; 96360; 99284; Q9967

== ENCOUNTER → 2020-11-22 10:49 | Outpatient (CLI) | payer MEDICARE, OTHER, SELFPAY ==
[2020-11-22] MEDS: COVID-19 VACC #2, MRNA(MOD) 100 MCG/0.5 ML VIAL IM (10:53)
== END ==
PROVIDERS: PCP Family Medicine; Visit Provider Internal Medicine
DX: Z23 Encounter for immunization (principal)
CPT/HCPCS: 0012A; 91301

== ENCOUNTER → 2021-06-18 09:15 | Outpatient (CLI) | payer MEDICARE, OTHER, SELFPAY ==
--- NOTE | 2021-06-18 | DI.US.S_ITS ---
PROCEDURE: US THYROID INDICATIONS: THYROID CANCER, TECHNIQUE: Real-time scanning was performed of the thyroid gland, with image documentation. COMPARISON: [facility], US, US THYROID, 06/12/2020, 10:04. FINDINGS: Expected unchanged appearance of the thyroid bed bilaterally status post thyroidectomy. No tumoral recurrence or fluid collections. There are several bilateral prominent lymph nodes, each measuring less than 1 cm in maximal short axis. IMPRESSION: Expected unchanged appearance of the thyroid bed status post thyroidectomy and no tumoral recurrence is identified. Dictated by: Rojelio Leal [facility] Interpreted: Owen Honeycutt MD on 06/18/2021 at 10:59 Transcribed by: MAT on 06/18/2021 at 11:01 Approved by: Owen Honeycutt M.D. on 06/18/2021 at 11:52
--- NOTE | 2021-06-18 | DI.MG.S_ITS ---
BILATERAL DIGITAL SCREENING MAMMOGRAM 3D/2D WITH CAD: 06/18/2021 CLINICAL: Routine screening. Family history of breast cancer. Comparison is made to exams dated: 06/12/2020 mammogram, 06/02/2019 mammogram, 06/01/2018 mammogram, and 05/28/2017 mammogram - [facility]. The tissue of both breasts is heterogeneously dense. This may lower the sensitivity of mammography. Current study was also evaluated with a Computer Aided Detection (CAD) system. No significant masses, calcifications, or other findings are seen in either breast. There has been no significant interval change. IMPRESSION: NEGATIVE There is no mammographic evidence of malignancy. A 1 year screening mammogram is recommended. This exam was interpreted at Station ID: [id number]. NOTE: For mammograms, a report in lay terms will be sent to the patient. Approximately 15% of breast malignancies will not be visualized mammographically. In the management of a palpable breast mass, a negative mammogram must not discourage biopsy of a clinically suspicious lesion. Electronically Signed By: Lewis monroy/ry:06/18/2021 11:52:52 letter sent: Normal Exam ACR BI-RADS Category 1: Negative 3341F
--- NOTE | 2021-06-18 | DI.RAD.S_ITS ---
PROCEDURE: XR CHEST 2V INDICATIONS: THYROID CANCER TECHNIQUE: 2 views of the chest were acquired. COMPARISON: [facility], , XR CHEST 2V, 06/12/2020, 10:25. FINDINGS: Surgical changes and devices: Surgical clips projecting over the thyroid fossa are stable. Lungs and pleura: Lungs are clear. No pleural effusions or pneumothorax. Mediastinum: Mediastinal contours are normal. Heart size is normal. Bones and chest wall: No suspicious bony abnormalities. Soft tissues appear unremarkable. IMPRESSION: No acute cardiopulmonary disease process. No evidence of metastatic disease. Dictated by: Demetra Dias MD, PhD on 06/18/2021 at 10:53 Approved by: Demetra Dias MD, PhD on 06/18/2021 at 10:54
== END ==
PROVIDERS: PCP Family Medicine; Referring Provider Family Medicine; Visit Provider Family Medicine
DX: Z12.31 Encounter for screening mammogram for malignant neoplasm of breast (principal); Z80.3 Family history of malignant neoplasm of breast; Z85.850 Personal history of malignant neoplasm of thyroid; E89.0 Postprocedural hypothyroidism
CPT/HCPCS: 71046; 76536; 77063; 77067

== ENCOUNTER → 2022-01-08 10:44 | Outpatient (CLI) | payer MEDICARE, OTHER, SELFPAY ==
--- NOTE | 2022-01-08 | DI.RAD.S_ITS ---
PROCEDURE: XR SHOULDER LT MIN 2V INDICATIONS: Pain in left shoulder TECHNIQUE: 3 views of the shoulder were acquired. COMPARISON: [facility], , CHEST 2 VIEW, 05/28/2017, 10:50. [facility], , SHOULDER MINIMUM 2VIEW RIGHT, 01/20/2007, 12:10. FINDINGS: Bones: No fractures or dislocations. Osteophytosis about the AC joint and inferior glenoid. Visualized ribs appear intact. Soft tissues: No suspicious soft tissue calcifications. IMPRESSION: Shoulder degeneration as detailed above. Dictated by: Dimitrios Washington M.D. on 01/08/2022 at 12:10 Approved by: Dimitrios Washington M.D. on 01/08/2022 at 12:12
== END ==
PROVIDERS: PCP Family Medicine; Referring Provider Family Medicine; Visit Provider Family Medicine
DX: M19.012 Primary osteoarthritis, left shoulder (principal); M25.512 Pain in left shoulder
CPT/HCPCS: 73030

== ENCOUNTER → 2022-06-23 07:47 | Outpatient (CLI) | payer MEDICARE, OTHER, SELFPAY ==
--- NOTE | 2022-06-23 | DI.MG.S_ITS ---
BILATERAL DIGITAL SCREENING MAMMOGRAM 3D/2D WITH CAD: 06/23/2022 CLINICAL: Routine screening. Family history of breast cancer. Comparison is made to exams dated: 06/18/2021 mammogram, 06/12/2020 mammogram, 06/02/2019 mammogram, and 06/01/2018 mammogram - [facility]. Both breasts are heterogeneously dense, which may obscure small masses (category c / 51-75% glandular tissue). Current study was also evaluated with a Computer Aided Detection (CAD) system. No significant masses, calcifications, or other findings are seen in either breast. There has been no significant interval change. IMPRESSION: NEGATIVE There is no mammographic evidence of malignancy. A 1 year screening mammogram is recommended. Based on the Tyrer Cuzick model (a risk assessment model) the patient's lifetime risk is 12.7% and her 10 year risk is 8.8%. According to the ACR, ACS, and NCCN guidelines, an annual breast MRI exam along with mammogram is recommended if the patient's lifetime risk is 20% or greater. This exam was interpreted at Station ID: [id number]. NOTE: For mammograms, a report in lay terms will be sent to the patient. Approximately 15% of breast malignancies will not be visualized mammographically. In the management of a palpable breast mass, a negative mammogram must not discourage biopsy of a clinically suspicious lesion. Electronically Signed By: Maynor loera/ry:06/23/2022 09:28:20 letter sent: Normal Exam ACR BI-RADS Category 1: Negative 3341F
--- NOTE | 2022-06-23 | DI.RAD.S_ITS ---
PROCEDURE: XR CHEST 2V INDICATIONS: HISTORY OF MALIGNANT NEOPLASM OF THYROID TECHNIQUE: 2 views of the chest were acquired. COMPARISON: [facility], CR, XR CHEST 2V, 06/18/2021, 9:22. [facility], CR, XR CHEST 1V, 11/07/2020, 14:01. FINDINGS: Surgical changes and devices: Metal clips project over the lower neck/upper chest as before. Lungs and pleura: Lungs are clear. No pleural effusions or pneumothorax. Mediastinum: Mediastinal contours are normal. Heart size is normal. Bones and chest wall: No suspicious bony abnormalities. Soft tissues appear unremarkable. IMPRESSION: No acute cardiopulmonary abnormality or significant interval change. No radiographic evidence of metastatic disease identified. Dictated by: Eric Rice M.D. on 06/23/2022 at 9:15 Approved by: Eric Rice M.D. on 06/23/2022 at 9:19
--- NOTE | 2022-06-23 | DI.US.S_ITS ---
PROCEDURE: US THYROID INDICATIONS: HISTORY OF MALIGNANT NEOPLASM OF THYROID TECHNIQUE: Real-time scanning was performed of the thyroid gland, with image documentation. COMPARISON: [facility], US, US THYROID, 06/18/2021, 10:07. FINDINGS: Prior thyroidectomy. No suspicious findings visualized in the thyroid bed. As before there are prominent cervical lymph nodes visualized bilaterally, all less than 1 centimeter short axis. IMPRESSION: Prior thyroidectomy. No suspicious findings visualized in the thyroid bed. Dictated by: Eric Rice M.D. on 06/23/2022 at 9:28 Approved by: Eric Rice M.D. on 06/23/2022 at 9:30
== END ==
PROVIDERS: PCP Family Medicine; Referring Provider Family Medicine; Visit Provider Family Medicine
DX: Z12.31 Encounter for screening mammogram for malignant neoplasm of breast (principal); E89.0 Postprocedural hypothyroidism; Z80.3 Family history of malignant neoplasm of breast; Z85.850 Personal history of malignant neoplasm of thyroid
CPT/HCPCS: 71046; 76536; 77063; 77067

== ENCOUNTER → 2023-06-29 07:45 | Outpatient (CLI) | payer MEDICARE, OTHER, SELFPAY ==
--- NOTE | 2023-06-29 | DI.RAD.S_ITS ---
PROCEDURE: XR CHEST 2V INDICATIONS: HISTORY OF THYROID CANCER TECHNIQUE: 2 views of the chest were acquired. COMPARISON: [facility], CR, XR CHEST 2V, 06/23/2022, 7:53. FINDINGS: Surgical changes and devices: Surgical clips in the neck probably from thyroidectomy. Lungs and pleura: Lungs are clear. No pleural effusions or pneumothorax. Mediastinum: Mediastinal contours are normal. Heart size is normal. Bones and chest wall: No suspicious bony abnormalities. Soft tissues appear unremarkable. IMPRESSION: No acute cardiopulmonary abnormality is seen. Dictated by: Reed Urias M.D. on 06/29/2023 at 10:46 Approved by: Reed Urias M.D. on 06/29/2023 at 10:46
--- NOTE | 2023-06-29 | DI.US.S_ITS ---
PROCEDURE: US THYROID INDICATIONS: HISTORY OF THYROID CANCER TECHNIQUE: Real-time scanning was performed of the thyroid gland, with image documentation. COMPARISON: [facility], US, US THYROID, 06/23/2022, 8:16. FINDINGS: Status post thyroidectomy. No recurrent mass is seen within the thyroid bed. A few morphologically normal cervical lymph nodes are seen that measure less than 1 cm in short axis diameter. IMPRESSION: Status post thyroidectomy. No recurrent thyroid mass. No bulky lymphadenopathy. Approved by: Eric Baker M.D. on 06/29/2023 at 15:16
--- NOTE | 2023-06-29 | DI.MG.S_ITS ---
BILATERAL DIGITAL SCREENING MAMMOGRAM 3D/2D WITH CAD: 06/29/2023 CLINICAL: Routine screening. Family history of breast cancer. Comparison is made to exams dated: 06/23/2022 mammogram, 06/18/2021 mammogram, and 06/12/2020 mammogram - [facility]. Both breasts are heterogeneously dense, which may obscure small masses (category c / 51-75% glandular tissue). Current study was also evaluated with a Computer Aided Detection (CAD) system. No significant masses, calcifications, or other findings are seen in either breast. There has been no significant interval change. IMPRESSION: NEGATIVE There is no mammographic evidence of malignancy. A 1 year screening mammogram is recommended. Based on the Tyrer Cuzick model (a risk assessment model) the patient's lifetime risk is 12.0% and her 10 year risk is 9.1%. According to the ACR, ACS, and NCCN guidelines, an annual breast MRI exam along with mammogram is recommended if the patient's lifetime risk is 20% or greater. This exam was interpreted at Station ID: [id number]. NOTE: For mammograms, a report in lay terms will be sent to the patient. Approximately 15% of breast malignancies will not be visualized mammographically. In the management of a palpable breast mass, a negative mammogram must not discourage biopsy of a clinically suspicious lesion. Electronically Signed By: Washington chambers/ry:06/29/2023 12:44:13 letter sent: Normal Exam ACR BI-RADS Category 1: Negative 3341F
== END ==
PROVIDERS: PCP Family Medicine; Referring Provider Family Medicine; Visit Provider Family Medicine
DX: Z12.31 Encounter for screening mammogram for malignant neoplasm of breast (principal); Z85.850 Personal history of malignant neoplasm of thyroid; E89.0 Postprocedural hypothyroidism; Z80.3 Family history of malignant neoplasm of breast
CPT/HCPCS: 71046; 76536; 77063; 77067

== ENCOUNTER → 2023-07-10 09:52 | Outpatient (CLI) | payer MEDICARE, OTHER, SELFPAY ==
--- NOTE | 2023-07-10 | DI.RAD.S_ITS ---
Bone Density Report Name: RAINER JACK Age: 73 Sex: Female Ethnicity: White Date of : 1950 Indication: osteopenia; Referring Provider: GLENROY DUMONT Study: Bone densitometry was performed. Exam Date: July 10, 2023 Accession number: [id number] Bone Density: Region BMD T-score Z-score Classification AP Spine(L1-L4) 1.020 -0.2 2.0 Normal Femoral Neck (Left) 0.672 -1.6 0.3 Osteopenia Total Hip (Left) 0.793 -1.2 0.4 Osteopenia Femoral Neck (Right) 0.700 -1.3 0.6 Osteopenia Total Hip (Right) 0.848 -0.8 0.9 Normal Total Hip Mean 0.821 -1.0 0.7 Normal World Health Organization criteria for BMD impression classify patients as: Normal (T-score at or above -1.0), Osteopenia (T-score between -1.0 and -2.5), or Osteoporosis (T-score at or below -2.5). 10-year Fracture Risk(1): Major Osteoporotic Fracture 11% Hip Fracture 1.8% Reported Risk Factors: [place] (), Neck BMD=0.672, BMI=26.3 (1) FRAX(R) Version 3.08. Fracture probability calculated for an untreated patient. Fracture probability may be lower if the patient has received treatment. Previous Exams: -- Region Exam Age BMD T-score BMD Change BMD Change Date g/cm2 vs Baseline vs Previous -- AP Spine (L1-L4) 07/10/2023 73 1.020 -0.2 -0.166 (-14.0%)# -0.028 (-2.7%)# 06/12/2020 70 1.049 0.0 -0.137 (-11.6%)* -0.037 (-3.4%)* 06/01/2018 68 1.086 0.4 -0.100 (-8.4%)* -0.020 (-1.8%) 05/01/2016 66 1.105 0.5 -0.081 (-6.8%)* -0.013 (-1.2%) 03/01/2014 63 1.118 0.6 -0.068 (-5.7%)* -0.049 (-4.2%)* 01/31/2011 60 1.168 1.1 -0.018 (-1.5%) 0.007 (0.6%) 12/19/2008 58 1.161 1.0 -0.025 (-2.1%)* -0.060 (-4.9%)* 07/02/2006 56 1.221 1.6 0.035 (3.0%)* 0.035 (3.0%)* 06/25/2005 55 1.186 1.3 Total Hip(Left) 07/10/2023 73 0.793 -1.2 -0.075 (-8.7%)# 0.000 (-0.1%)# 06/12/2020 70 0.794 -1.2 -0.075 (-8.6%)* -0.009 (-1.1%) 06/01/2018 68 0.802 -1.1 -0.066 (-7.6%)* 0.020 (2.6%) 05/01/2016 66 0.782 -1.3 -0.087 (-10.0%)* -0.010 (-1.2%) 03/01/2014 63 0.792 -1.2 -0.077 (-8.9%)* -0.049 (-5.8%)* 01/31/2011 60 0.840 -0.8 -0.028 (-3.2%)* 0.033 (4.1%)* 12/19/2008 58 0.807 -1.1 -0.061 (-7.1%)* -0.053 (-6.2%)* 07/02/2006 56 0.860 -0.7 -0.008 (-0.9%) -0.008 (-0.9%) 06/25/2005 55 0.868 -0.6 Total Hip(Right) 07/10/2023 73 0.848 -0.8 -0.075 (-8.1%)# -0.021 (-2.4%)# 06/12/2020 70 0.869 -0.6 -0.054 (-5.8%)* 0.032 (3.8%)* 06/01/2018 68 0.838 -0.9 -0.085 (-9.2%)* -0.025 (-3.0%) 05/01/2016 66 0.863 -0.6 -0.060 (-6.5%)* -0.009 (-1.0%) 03/01/2014 63 0.872 -0.6 -0.051 (-5.5%)* -0.012 (-1.4%) 01/31/2011 60 0.885 -0.5 -0.038 (-4.1%)* 0.010 (1.1%) 12/19/2008 58 0.875 -0.6 -0.048 (-5.2%)* -0.053 (-5.7%)* 07/02/2006 56 0.928 -0.1 0.005 (0.6%) 0.005 (0.6%) 06/25/2005 55 0.923 -0.2 -- *Denotes significance at 95% confidence level, LSC for AP Spine = 0.022 g/cm2, LSC for Total Hip = 0.027 g/cm2 # Denotes dissimilar scan types or analysis methods Impression: The patient has low bone mass, based on the Left Femoral Neck T-score. The patient has an estimated ten-year risk of hip fracture of 1.8% and an estimated ten-year risk of major fracture of 11%, based on the WHO FRAX algorithm. No significant bone loss was observed. Discussion: BONE DENSITY IS LOW AT ONE OR MORE SKELETAL SITES. This patient's lowest T-score is low at one or more skeletal sites. It meets the World Health Organization's (WHO) criteria for low bone mass (T-score between -1.0 and -2.5). The patient's 10-year risk of fracture as calculated by FRAX is less than the threshold where pharmacological therapy is recommended by the National Osteoporosis Foundation (NOF). However, all treatment decisions require clinical judgment and consideration of individual patient factors, including patient preferences, comorbidities, previous drug use, risk factors not captured in the FRAX model (e.g., frailty, falls, vitamin D deficiency, increased bone turnover, interval significant decline in bone density) and possible under or overestimation of fracture risk by FRAX. The patient should follow a healthful lifestyle (good nutrition with adequate calcium and vitamin D, and appropriate weight-bearing exercise). Follow-Up: Consider repeating this study in 2 to 3 years to reassess this patient's status, or sooner if there is some new clinical indication. Reported by: SATHISH KAUFFMAN M.D. on 07/10/2023 10:19:00 AM.
== END ==
PROVIDERS: PCP Family Medicine; Referring Provider Family Medicine; Visit Provider Family Medicine
DX: M85.89 Other specified disorders of bone density and structure, multiple sites (principal); Z13.0 Encounter for screening for diseases of the blood and blood-forming organs and certain disorders involving the immune mechanism; Z13.29 Encounter for screening for other suspected endocrine disorder; R03.0 Elevated blood-pressure reading, without diagnosis of hypertension
CPT/HCPCS: 77080

== ENCOUNTER → 2024-07-04 08:16 | Outpatient (CLI) | payer MEDICARE, OTHER, SELFPAY ==
--- NOTE | 2024-07-04 08:19 | DI.MG.S_ITS ---
BILATERAL DIGITAL SCREENING MAMMOGRAM 3D/2D WITH CAD: 07/04/2024 CLINICAL: Routine screening. Family history of breast cancer. Comparison is made to exams dated: 06/29/2023 mammogram, 06/23/2022 mammogram, and 06/18/2021 mammogram - [facility]. The breasts are heterogeneously dense, which may obscure small masses (category c / 51-75% glandular tissue). Current study was also evaluated with a Computer Aided Detection (CAD) system. No significant masses, calcifications, or other findings are seen in either breast. There has been no significant interval change. IMPRESSION: NEGATIVE There is no mammographic evidence of malignancy. A 1 year screening mammogram is recommended. Based on the Tyrer Cuzick model (a risk assessment model) the patient's lifetime risk is 11.3% and her 10 year risk is 9.3%. According to the ACR, ACS, and NCCN guidelines, an annual breast MRI exam along with mammogram is recommended if the patient's lifetime risk is 20% or greater. This exam was interpreted at Station ID: [id number]. NOTE: For mammograms, a report in lay terms will be sent to the patient. Approximately 15% of breast malignancies will not be visualized mammographically. In the management of a palpable breast mass, a negative mammogram must not discourage biopsy of a clinically suspicious lesion. Electronically Signed By: Stephon wilson/ry:07/04/2024 21:12:54 letter sent: Normal Exam ACR BI-RADS Category 1: Negative
--- NOTE | 2024-07-04 08:19 | DI.US.S_ITS ---
PROCEDURE: US THYROID INDICATIONS: HX THYROID CANCER TECHNIQUE: Real-time scanning was performed of the thyroid gland, with image documentation. COMPARISON: [facility], US, US THYROID, 06/29/2023, 8:26. FINDINGS: Thyroid: Status post thyroidectomy. No abnormalities are detected within the thyroid bed. Normal appearing lymph nodes are present. IMPRESSION: Status post thyroidectomy without findings concerning for recurrent mass. No abnormal lymphadenopathy. Dictated by: Victor Manuel Etienne M.D. on 07/04/2024 at 15:07 Approved by: Victor Manuel Etienne M.D. on 07/04/2024 at 15:13
--- NOTE | 2024-07-04 08:20 | DI.RAD.S_ITS ---
PROCEDURE: XR CHEST 2V INDICATIONS: HX THYROID CANCER TECHNIQUE: 2 views of the chest were acquired. COMPARISON: [facility], CR, XR CHEST 2V, 06/29/2023, 8:16. FINDINGS: Surgical changes and devices: None. Lungs and pleura: Lungs are clear. No pleural effusions or pneumothorax. Mediastinum: Mediastinal contours are normal. Heart size is normal. Bones and chest wall: No suspicious bony abnormalities. Soft tissues appear unremarkable. Surgical clips in the base of the neck from prior thyroidectomy. IMPRESSION: No acute cardiopulmonary abnormality is seen. Dictated by: Willam Perez M.D. on 07/04/2024 at 10:32 Approved by: Willam Perez M.D. on 07/04/2024 at 10:33
== END ==
PROVIDERS: PCP Family Medicine; Referring Provider Family Medicine; Visit Provider Family Medicine
DX: Z12.31 Encounter for screening mammogram for malignant neoplasm of breast (principal); Z80.3 Family history of malignant neoplasm of breast; R92.333 Mammographic heterogeneous density, bilateral breasts; Z08 Encounter for follow-up examination after completed treatment for malignant neoplasm; Z85.850 Personal history of malignant neoplasm of thyroid
CPT/HCPCS: 71046; 76536; 77063; 77067

== ENCOUNTER → 2025-07-12 09:55 | Outpatient (CLI) | payer MEDICARE, OTHER, SELFPAY ==
--- NOTE | 2025-07-12 09:58 | DI.RAD.S_ITS ---
PROCEDURE: XR DEXA AXIAL SKELETON INDICATIONS: SCREENING COMPARISON: [facility], , XR DEXA AXIAL SKELETON, 06/01/2018, 10:31. [facility], CR, DEXA AXIAL SKELETON, 05/01/2016, 10:16. FINDINGS: Lumbar Spine: Bone mineral density 1.064 g/cm2, T score 0.2, increased by 4.3%. Left Femoral Neck: Bone mineral density 0.660 g/cm2, T score -1.7. Left Hip: Bone mineral density 0.783 g/cm2, T score -1.3, no significant change compared to prior. Fracture Risk Calculation (when applicable): 10-year fracture risk of a major osteoporotic fracture 12 percent and of a hip fracture 2.3 percent. (T score greater or equal to -1.0 to: NORMAL) (T score from -1.1 to -2.4: OSTEOPENIA) (T score less than or equal to -2.5: OSTEOPOROSIS) IMPRESSION: Low bone mineral density (osteopenia) by WHO classification. Follow-up guidelines as follows: Osteoporosis: Consider a repeat DEXA and Vertebral Fracture Assessment (VFA) exam in 2 years or sooner if medically necessary, to reassess this patient's status. Osteopenia: Consider a repeat DEXA in 2-3 years to reassess this patient's status, or if there is a new clinical indication. Normal: Consider a repeat DEXA in 5 years or sooner, or if there is a new clinical indication. All treatment decisions require clinical judgment and consideration of individual patient factors, including patient preferences, comorbidities, previous drug use, risk factors not captured in the FRAX model (e.g., frailty, falls, vitamin D deficiency, increased bone turnover, interval significant decline in bone density ) and possible under- or over-estimation of fracture risk by FRAX. In addition, the NOF Guide recommends that FDA-approved medical therapies be considered in postmenopausal women and men age >= 50 years with a: * Hip or vertebral (clinical or morphometric) fracture * T-score of <=-2.5 at the spine or hip * Ten-year fracture probability by FRAX of >= 3% for hip fracture or >=20% for major osteoporotic fracture. Dictated by: Victor Manuel Etienne M.D. on 07/12/2025 at 10:36 Approved by: Victor Manuel Etienne M.D. on 07/12/2025 at 10:37
--- NOTE | 2025-07-12 09:58 | DI.MG.S_ITS ---
MM screening mammo BI: 07/12/2025. BI-RADS: 1 CLINICAL: 75-year old female for bilateral screening mammogram. Tyrer-Cuzick lifetime risk of 7.4%. Current reported family history of breast cancer: mother and maternal aunt. PRIOR EXAMS 07/04/2024, 06/29/2023, 06/23/2022, 06/18/2021. MAMMOGRAPHY TECHNIQUE: 2D and 3D (tomosynthesis) digital mammographic views obtained, with additional images as needed for full coverage. Current study was also evaluated with a Computer Aided Detection (CAD) system. DENSITY C. The breasts are heterogeneously dense, which may obscure small masses. MAMMOGRAPHY FINDINGS Bilateral: No suspicious mass, asymmetry, microcalcification, or other abnormality seen. IMPRESSION: * No evidence of malignancy. RECOMMENDATIONS Bilateral * Annual screening mammography. OVERALL ASSESSMENT CATEGORY BI-RADS-1: Negative. The [employer] recommends annual screening mammography beginning at age 40 for women with average risk of breast cancer. ELECTRONICALLY SIGNED: April Dupont M.D. on 07/12/2025 at 03:29:32 PM PT Interpreting Station ID: [id number]
== END ==
PROVIDERS: PCP Family Medicine; Referring Provider Family Medicine; Visit Provider Family Medicine
DX: Z12.31 Encounter for screening mammogram for malignant neoplasm of breast (principal); M85.89 Other specified disorders of bone density and structure, multiple sites; R92.333 Mammographic heterogeneous density, bilateral breasts; Z80.3 Family history of malignant neoplasm of breast
CPT/HCPCS: 77063; 77067; 77080